=== PATIENT | male | born 1980 ===

== ENCOUNTER 2021-04-01 16:18 | Emergency (ER) | payer SELFPAY ==
[2021-04-01 19:31] VITALS: BP 158/86
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
--- NOTE | 2021-04-01 19:54 | XRay Report ---
Left hand 3 views INDICATION: Injury FINDINGS: There is amputation/injury in the index finger and long finger. There is also soft tissue a nd a majority of the distal phalanx of the index finger with soft tissue loss and distal tuft of the middle finger. Signer Name: Alfredito Farrar MD Signed: 04/01/2021 7:50 PM Workstation Name: [id number]
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
[2021-04-01] MEDS ORDERED: oxyCODONE /ACETAMINOPHEN 5-325MG TAB PO ONE (20:28)
[2021-04-01] MEDS ORDERED: TETANUS,DIPH,PERTUSS(ACELL) VACCINE 0.5 ML SYRINGE IM ONE (20:28)
== END 2021-04-01 21:54 | disposition other institution (70) ==
LOC: ED 16:18
DX: S68.613A Complete traumatic transphalangeal amputation of left middle finger, initial encounter (principal); S68.611A Complete traumatic transphalangeal amputation of left index finger, initial encounter; W31.82XA Contact with other commercial machinery, initial encounter; Y93.89 Activity, other specified; Y92.89 Other specified places as the place of occurrence of the external cause; Y99.8 Other external cause status
CPT/HCPCS: 73130; 90471; 90715; 96365; 99285; J0690